=== PATIENT | female | born 1950 | race Caucasian/White ===

== ENCOUNTER → 2021-10-03 11:25 | Outpatient (BNVA) | payer MEDICARE, OTHER, SELFPAY | PROVIDERS: PCP Internal Medicine; Visit Provider Psychiatry & Neurology Neurology | DX: G20 Parkinson's disease (principal); R29.898 Other symptoms and signs involving the musculoskeletal system; M54.2 Cervicalgia | CPT/HCPCS: 99212 ==

== ENCOUNTER → 2021-11-13 09:50 | Outpatient (BNVA) | payer MEDICARE, OTHER, SELFPAY | PROVIDERS: PCP Internal Medicine; Visit Provider Nurse Practitioner Family | DX: G20 Parkinson's disease (principal); G24.3 Spasmodic torticollis; Z79.899 Other long term (current) drug therapy | CPT/HCPCS: 99212 ==

== ENCOUNTER → 2022-01-08 13:26 | Outpatient (BNVA) | payer MEDICARE, OTHER, SELFPAY | PROVIDERS: PCP Internal Medicine; Visit Provider Psychiatry & Neurology Neurology | DX: G24.3 Spasmodic torticollis (principal) | CPT/HCPCS: 64616; 99211; J0585 ==

== ENCOUNTER → 2022-02-24 10:22 | Outpatient (BNVA) | payer MEDICARE, OTHER, SELFPAY | PROVIDERS: PCP Internal Medicine; Visit Provider Psychiatry & Neurology Neurology | DX: G20 Parkinson's disease (principal); G24.3 Spasmodic torticollis; Z79.899 Other long term (current) drug therapy | CPT/HCPCS: 99212 ==

== ENCOUNTER → 2022-04-18 13:11 | Outpatient (BNVA) | payer MEDICARE, OTHER, SELFPAY | PROVIDERS: PCP Internal Medicine; Visit Provider Psychiatry & Neurology Neurology | DX: G24.3 Spasmodic torticollis (principal) | CPT/HCPCS: 64616; 99211; J0585 ==

== ENCOUNTER → 2022-08-07 11:19 | Outpatient (BNVA) | payer MEDICARE, OTHER, SELFPAY | PROVIDERS: PCP Internal Medicine; Visit Provider Psychiatry & Neurology Neurology | DX: G24.3 Spasmodic torticollis (principal) | CPT/HCPCS: 64616; 99211; J0585 ==

== ENCOUNTER → 2022-09-26 09:40 | Outpatient (BNVA) | payer MEDICARE, OTHER, SELFPAY | PROVIDERS: PCP Internal Medicine; Visit Provider Psychiatry & Neurology Neurology | DX: G20 Parkinson's disease (principal); G24.3 Spasmodic torticollis | CPT/HCPCS: 99212 ==

== ENCOUNTER → 2022-11-26 07:53 | Outpatient (BNVA) | payer MEDICARE, OTHER, SELFPAY | PROVIDERS: PCP Internal Medicine; Visit Provider Psychiatry & Neurology Neurology | DX: G24.3 Spasmodic torticollis (principal) | CPT/HCPCS: 64616; 99211; J0585 ==

== ENCOUNTER → 2023-03-05 08:45 | Outpatient (BNVA) | payer MEDICARE, OTHER, SELFPAY | PROVIDERS: PCP Internal Medicine; Visit Provider Psychiatry & Neurology Neurology | DX: G24.3 Spasmodic torticollis (principal); R42 Dizziness and giddiness | CPT/HCPCS: 64616; 99212; J0585 ==

== ENCOUNTER 2023-03-30 12:31 | Outpatient (AMB) | payer MEDICARE, OTHER, SELFPAY ==
--- NOTE | 2023-03-30 12:38 | MHC.OFFVIS ---
Intake Vital Signs 03/30/23 12:40 Height 5 ft 1 in Weight 142 lb 4 oz BMI 26.9 BP 110/84 Blood Pressure Location Rt brachial Position Sitting Pulse 100 Pulse Source Pulse Oximeter Pulse Oximetry (%) 99 Intake Visit Reasons: f/u parkinsons-confirmed Intake Note: Patient presents for follow up Im experiencing some headaches and sometime feel heavy headed. my ears are constantly humming and Im also having some memory issues. Allergies No Known Allergies Allergy (Verified 03/30/23 12:41) Medication List - Last Reconciled 03/30/23 by Vidya Lo MD baclofen 1 tab qama nd 2tabs qhs orally; carbidopa-levodopa 25-100 mg 1 tab PO TID dicyclomine 10 mg PO BID PRN lorazepam 1 mg PO DAILY PRN magnesium 250 mg PO DAILY meclizine 12.5 mg PO TID PRN multivitamin (One-A-Day Essential tablet) 1 tab PO DAILY onabotulinumtoxinA (Botox) 200 units to be injected to neck muscles by physician q 3mths; ondansetron 8 mg PO Q6H PRN pantoprazole 40 mg PO DAILY polyethylene glycol 3350 (Miralax) 17 grams PO DAILY HPI HPI Comments History of Present Illness Details 72y/o female with parkinsons and cervical dystonia comes for follow up. she reports word finding issues .SHe still has neck pain and head is heavy.supine position does not help. Her posture is worse - stooped and has pain in shoulde. Her jaw tremors are less. Her right hand tremors are mild increases with stress. Her MRI c spine - shows spondylosis. Memory is good - occasional word finding issues. Sleep- is ok. No RBD Mood is stable she does not exercise. No falls. Gait is good She is independent in all her ADLs, She reports difficulty handwriting. she had MRI head for headaches. she did not respond to botox this time. she reports fatigue. [facility] Medical History (Updated 03/05/23 @ 09:48 by Vidya Lo MD) Cancer GERD (gastroesophageal reflux disease) Vertigo Surgical History History of lumpectomy of left breast History of surgery Hx of lithotripsy Family History Mother Cancer Father Hx of Guillain-[place] syndrome Daughter Muscular dystrophy Son Depression Social History Household Members: Children Alcohol intake: never Patient Tobacco Use Status: Never used Tobacco Physical Exam Vital Signs: Last Vital Signs Pulse 100 03/30/23 12:40 BP 110/84 03/30/23 12:40 Pulse Ox 99 03/30/23 12:40 BMI result Body Mass Index 26.9 Const General: cooperative, healthy appearing and no acute distress Nutritional Appearance: average body habitus Orientation/consciousness: patient oriented x3 Neck Other: Mild head tremor. Bilateral trapezius, semispinalis tightness. Neuro Other: Mild decreased facial expression and blink. Minimal hands tremor L>R- intermittent Mild decreased FFM and foot taps bilaterally. Gait-stooped, good stride, mild decreased arm swings. General: patient oriented x3 and CN's II-XI intact bilaterally Psych Appearance: grossly normal Mental Status: mental status grossly normal Speech and movement: Normal speech and movement present Assessment & Plan Assessment & Plan (1) Cervical dystonia: Code(s): G24.3 - Spasmodic torticollis (2) Parkinsons disease: Code(s): G20 - Parkinson's disease Plan Continue to take Sinemet 25/100 mg TID, and baclofen 5 mg, 1 tab AM and 2 tabs at HS. continue exercises Orders: Orders PT Evaluation and Treatment 03/30/23 G24.3 - Spasmodic torticollis, M54.2 - Cervicalgia Coding Level of Care Code Est Pt Level 4 (98871) Diagnoses Cervical dystonia G24.3 Parkinsons disease G20
[2023-03-30 12:40] VITALS: BP 110/84; PULSE 100; O2SAT 99; BMI 26.9
== END 2023-03-30 13:01 | disposition home or self-care (01) ==
PROVIDERS: Visit Provider Psychiatry & Neurology Neurology
DX: G24.3 Spasmodic torticollis (principal); G20 Parkinson's disease
CPT/HCPCS: 99214

== ENCOUNTER → 2023-03-30 12:31 | Outpatient (BNVA) | payer MEDICARE, OTHER, SELFPAY | PROVIDERS: Visit Provider Psychiatry & Neurology Neurology | DX: G20 Parkinson's disease (principal); G24.3 Spasmodic torticollis | CPT/HCPCS: 99212 ==

== ENCOUNTER 2023-06-29 12:27 | Outpatient (AMB) | payer MEDICARE, OTHER, SELFPAY ==
--- NOTE | 2023-06-29 12:39 | MHC.OFFVIS ---
Intake Vital Signs 06/29/23 12:41 Height 5 ft 1 in Weight 138 lb 6 oz BMI 26.1 BP 132/78 Blood Pressure Location Rt brachial Position Sitting Respiration 16 Pulse 85 Pulse Source Pulse Oximeter Pulse Oximetry (%) 97 Oxygen Delivery Method Room Air Intake Visit Reasons: follow up-confirmed Intake Note: Pt presents to office for 3 month follow up for cervical dystonia. She reports she has been doing PT which has helped with her neck pain, but she is still getting headaches twice a week. Allergies No Known Allergies Allergy (Verified 06/29/23 12:40) Medication List - Last Reconciled 06/29/23 by Vidya Lo MD baclofen 2 tab qama nd 3 tabs qhs orally; carbidopa-levodopa 25-100 mg 1 tab PO TID dicyclomine 10 mg PO BID PRN lorazepam 1 mg PO DAILY PRN magnesium 250 mg PO DAILY meclizine 12.5 mg PO TID PRN multivitamin (One-A-Day Essential tablet) 1 tab PO DAILY onabotulinumtoxinA (Botox) 200 units to be injected to neck muscles by physician q 3mths; ondansetron 8 mg PO Q6H PRN pantoprazole 40 mg PO DAILY polyethylene glycol 3350 (Miralax) 17 grams PO DAILY HPI HPI Comments History of Present Illness Details 73y/o female with parkinsons and cervical dystonia comes for follow up.PT helped with neck but she had to stop because of GI issues Head is heavy .she has 1-2 headaches a week. she has daytime fatigue. she has trouble staying asleep. she reports word finding issues .supine position does not help. Her posture is worse - stooped and has pain in shoulder. Her jaw tremors are less. Her right hand tremors are mild increases with stress. Her MRI c spine - shows spondylosis. Memory is good - occasional word finding issues. Sleep- is ok. No RBD Mood is stable she does not exercise. No falls. Gait is good She is independent in all her ADLs, She reports difficulty handwriting. she had MRI head for headaches. she did not respond to botox this time. she reports fatigue. [facility] Medical History Vertigo Cancer GERD (gastroesophageal reflux disease) Surgical History History of surgery Hx of lithotripsy History of lumpectomy of left breast Family History Mother Cancer Father Hx of Guillain-[place] syndrome Daughter Muscular dystrophy Son Depression Social History Household Members: Children Alcohol intake: never Patient Tobacco Use Status: Never used Tobacco Physical Exam Vital Signs: Last Vital Signs Pulse 85 06/29/23 12:41 Resp 16 06/29/23 12:41 BP 132/78 06/29/23 12:41 Pulse Ox 97 06/29/23 12:41 Oxygen Delivery Method Room Air 06/29/23 12:41 BMI result Body Mass Index 26.1 Const General: cooperative, healthy appearing and no acute distress Nutritional Appearance: average body habitus Orientation/consciousness: patient oriented x3 Neck Other: Mild head tremor. Bilateral trapezius, semispinalis tightness. Neuro Other: Mild decreased facial expression and blink. Minimal hands tremor L>R- intermittent Mild decreased FFM and foot taps bilaterally. Gait-stooped, good stride, mild decreased arm swings. General: patient oriented x3 and CN's II-XI intact bilaterally Psych Appearance: grossly normal Mental Status: mental status grossly normal Speech and movement: Normal speech and movement present Assessment & Plan Assessment & Plan (1) Cervical dystonia: Code(s): G24.3 - Spasmodic torticollis (2) Parkinsons disease: Code(s): G20 - Parkinson's disease Plan Continue to take Sinemet 25/100 mg TID, and Increase baclofen 5 mg, 2 tab AM and 3 tabs at HS. continue exercises Orders: Referrals Speech and Hearing Referral G20 - Parkinson's disease Medications: Changed From baclofen 1 tab qama nd 2tabs qhs orally; 270 tabs 1RF To baclofen 2 tab qama nd 3 tabs qhs orally; 450 tabs 1RF Coding Level of Care Code Est Pt Level 4 (54633) Diagnoses Cervical dystonia G24.3 Parkinsons disease G20
[2023-06-29 12:41] VITALS: BP 132/78; PULSE 85; RESP 16; O2SAT 97; BMI 26.1
== END 2023-06-29 13:11 | disposition home or self-care (01) ==
PROVIDERS: PCP Internal Medicine; Visit Provider Psychiatry & Neurology Neurology
DX: G24.3 Spasmodic torticollis (principal); G20.B1 Parkinson's disease with dyskinesia, without mention of fluctuations
CPT/HCPCS: 99214

== ENCOUNTER → 2023-06-29 12:27 | Outpatient (BNVA) | payer MEDICARE, OTHER, SELFPAY | PROVIDERS: PCP Internal Medicine; Visit Provider Psychiatry & Neurology Neurology | DX: G24.3 Spasmodic torticollis (principal); G20.A1 Parkinson's disease without dyskinesia, without mention of fluctuations | CPT/HCPCS: 99212 ==

== ENCOUNTER 2023-09-29 10:45 | Outpatient (AMB) | payer MEDICARE, OTHER, SELFPAY ==
--- NOTE | 2023-09-29 11:02 | MHC.OFFVIS ---
Intake Vital Signs 09/29/23 11:04 Height 5 ft 1 in Weight 136 lb 9 oz BMI 25.8 BP 138/80 Blood Pressure Location Lt brachial Position Sitting Respiration 16 Pulse 122 H Pulse Source Pulse Oximeter Pulse Oximetry (%) 99 Oxygen Delivery Method Room Air Intake Visit Reasons: 3 mnts f/u appt-Confirmed Intake Note: Pt presents to the office for a 3 month follow up for Parkinson's and cervical dystonia.Pt reports increased tremors on the right side for the last 2 weeks. [employer] Safety Engineer Required: No Allergies No Known Allergies Allergy (Verified 09/29/23 11:03) Medication List - Last Reconciled 09/29/23 by Vidya Lo MD baclofen 2 tab qama nd 3 tabs qhs orally; carbidopa-levodopa 25-100 mg 1 tab PO TID dicyclomine 10 mg PO BID PRN lorazepam 1 mg PO DAILY PRN magnesium 250 mg PO DAILY multivitamin (One-A-Day Essential tablet) 1 tab PO DAILY pantoprazole 40 mg PO DAILY polyethylene glycol 3350 (Miralax) 17 grams PO DAILY HPI HPI Comments History of Present Illness Details 73y/o female with parkinsons and cervical dystonia comes for follow up.she feels she is worse. her tremors in her lips and right hand and neck has worsened . she tried lorazepam and it helped. During she had COVID and has been tried since then she is also more anxious and has hard time falling asleep after waking up to use the bathroom. She was seen at ENT for headaches and ears being blocked , was given a course of steroid and antibiotics which did not help. she has daytime fatigue. she has trouble staying asleep. she reports word finding issues .supine position does not help. Her posture is worse - stooped and has pain in shoulder. Her MRI c spine - shows spondylosis. Memory is good - occasional word finding issues. Sleep- is ok. No RBD Mood is stable she does not exercise. No falls. Gait is good She is independent in all her ADLs, She reports difficulty handwriting. she had MRI head for headaches. she did not respond to botox this time. she reports fatigue. [facility] Medical History Vertigo Cancer GERD (gastroesophageal reflux disease) Surgical History History of surgery Hx of lithotripsy History of lumpectomy of left breast Family History Mother Cancer Father Hx of Guillain-[place] syndrome Daughter Muscular dystrophy Son Depression Social History Household Members: Children Alcohol intake: never Patient Tobacco Use Status: Never used Tobacco Physical Exam Vital Signs: Last Vital Signs Pulse 122 H 09/29/23 11:04 Resp 16 09/29/23 11:04 BP 138/80 09/29/23 11:04 Pulse Ox 99 09/29/23 11:04 Oxygen Delivery Method Room Air 09/29/23 11:04 BMI result Body Mass Index 25.8 Const General: cooperative, healthy appearing and no acute distress Nutritional Appearance: average body habitus Orientation/consciousness: patient oriented x3 Neck Other: Mild head tremor. Bilateral trapezius, semispinalis tightness. Neuro Other: Mild decreased facial expression and blink. Minimal hands tremor L>R- intermittent Mild decreased FFM and foot taps bilaterally. Gait-stooped, good stride, mild decreased arm swings. General: patient oriented x3 and CN's II-XI intact bilaterally Psych Appearance: grossly normal Mental Status: mental status grossly normal Speech and movement: Normal speech and movement present Assessment & Plan Assessment & Plan (1) Cervical dystonia: Code(s): G24.3 - Spasmodic torticollis (2) Parkinsons disease: Code(s): G20 - Parkinson's disease Plan Continue to take Sinemet 25/100 mg TID, and baclofen 5 mg, 2 tab AM and 3 tabs at HS. continue exercises Coding Level of Care Code Est Pt Level 4 (88401) Diagnoses Cervical dystonia G24.3 Parkinsons disease G20
[2023-09-29 11:04] VITALS: BP 138/80; PULSE 122; RESP 16; O2SAT 99; BMI 25.8
== END 2023-09-29 11:26 | disposition home or self-care (01) ==
PROVIDERS: PCP Internal Medicine; Visit Provider Psychiatry & Neurology Neurology
DX: G24.3 Spasmodic torticollis (principal); G20.B1 Parkinson's disease with dyskinesia, without mention of fluctuations
CPT/HCPCS: 99214

== ENCOUNTER → 2023-09-29 10:45 | Outpatient (BNVA) | payer MEDICARE, OTHER, SELFPAY | PROVIDERS: PCP Internal Medicine; Visit Provider Psychiatry & Neurology Neurology | DX: G24.3 Spasmodic torticollis (principal); G20.A1 Parkinson's disease without dyskinesia, without mention of fluctuations; Z79.899 Other long term (current) drug therapy | CPT/HCPCS: 99212 ==

== ENCOUNTER 2024-01-07 14:19 | Outpatient (AMB) | payer MEDICARE, OTHER, SELFPAY ==
[2024-01-07 14:25] VITALS: BP 122/70; PULSE 97; RESP 16; O2SAT 99; BMI 26.4
--- NOTE | 2024-01-07 14:25 | MHC.OFFVIS ---
Vital Signs 01/07/24 14:25 Height 5 ft 1 in Weight 139 lb 8 oz BMI 26.4 BP 122/70 Blood Pressure Location Rt brachial Position Sitting Respiration 16 Pulse 97 Pulse Source Pulse Oximeter Pulse Oximetry (%) 99 Oxygen Delivery Method Room Air Intake Visit Reasons: 3 mo f/CONF Intake Note: Pt presents for 3 month follow up for cervical dystonia. Mapping Editor Required: No Allergies No Known Allergies Allergy (Verified 01/07/24 14:25) Medication List - Last Reconciled 01/07/24 by Vidya Lo MD baclofen 5 mg orally 1 tab qam and 2 tabs qhs; carbidopa-levodopa 25-100 mg 1 tab PO TID dicyclomine 10 mg PO BID PRN famotidine 40 mg PO DAILY lorazepam 1 mg PO DAILY PRN magnesium 250 mg PO DAILY multivitamin (One-A-Day Essential tablet) 1 tab PO DAILY polyethylene glycol 3350 (Miralax) 17 grams PO DAILY HPI Comments Details: 73y/o female with parkinsons and cervical dystonia comes for follow up.Her parkinsons is stable No change since her last visit. Her anxiety is better with lorazepam .Tremors are more when she is tired and anxious- mostly in her lips headaches are less frequent. she reports word finding issues . Her MRI c spine - shows spondylosis. Memory is good - occasional word finding issues. Sleep- is ok. 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 No falls. Gait is good She is independent in all her ADLs, She reports difficulty handwriting.. she reports fatigue. [facility] Medical History (Updated 01/07/24 @ 14:40 by Vidya Lo MD) Parkinson's disease without dyskinesia Vertigo Cancer GERD (gastroesophageal reflux disease) Surgical History History of surgery Hx of lithotripsy History of lumpectomy of left breast Family History Mother Cancer Father Hx of Guillain-[place] syndrome Daughter Muscular dystrophy Son Depression Social History Household Members: Children Alcohol intake: never Patient Tobacco Use Status: Never used Tobacco Physical Exam Vital Signs: Last Vital Signs Pulse 97 01/07/24 14:25 Resp 16 01/07/24 14:25 BP 122/70 01/07/24 14:25 Pulse Ox 99 01/07/24 14:25 Oxygen Delivery Method Room Air 01/07/24 14:25 BMI result Body Mass Index 26.4 Const General: cooperative, healthy appearing and no acute distress Nutritional Appearance: average body habitus Orientation/consciousness: patient oriented x3 Neck Other: Mild head tremor. Bilateral trapezius, semispinalis tightness. Neuro Other: Mild decreased facial expression and blink. Minimal hands tremor L>R- intermittent Mild decreased FFM and foot taps bilaterally. Gait-stooped, good stride, mild decreased arm swings. General: patient oriented x3 and CN's II-XI intact bilaterally Psych Appearance: grossly normal Mental Status: mental status grossly normal Speech and movement: Normal speech and movement present Assessment & Plan Assessment & Plan (1) Parkinson's disease without dyskinesia: Code(s): G20.A1 - Parkinson's disease without dyskinesia, without mention of fluctuations Category: Medical (2) Cervical dystonia: Code(s): G24.3 - Spasmodic torticollis Category: Medical Plan Continue to take Sinemet 25/100 mg TID, and decrease baclofen 5 mg, 3 tabs at HS. continue exercises change lorazepam 0.5mg as needed Medications: Changed From lorazepam 1 mg PO DAILY PRN To lorazepam 0.5 mg PO BID PRN 60 tabs 0RF anxiety Coding Level of Care Code Est Pt Level 4 (43172) Complex EM visit Add On G2211 Diagnoses Parkinson's disease without dyskinesia G20.A1 Cervical dystonia G24.3
== END 2024-01-07 14:52 | disposition home or self-care (01) ==
PROVIDERS: PCP Internal Medicine; Visit Provider Psychiatry & Neurology Neurology
DX: G20.A1 Parkinson's disease without dyskinesia, without mention of fluctuations (principal); G24.3 Spasmodic torticollis
CPT/HCPCS: 99214; G2211

== ENCOUNTER → 2024-01-07 14:19 | Outpatient (BNVA) | payer MEDICARE, OTHER, SELFPAY | PROVIDERS: PCP Internal Medicine; Visit Provider Psychiatry & Neurology Neurology | DX: G20.A1 Parkinson's disease without dyskinesia, without mention of fluctuations (principal); G24.3 Spasmodic torticollis | CPT/HCPCS: 99212 ==

== ENCOUNTER 2024-03-14 08:45 | Outpatient (AMB) | payer MEDICARE, OTHER, SELFPAY ==
[2024-03-14 09:10] VITALS: BP 126/70; PULSE 104; RESP 16; O2SAT 78; BMI 25.5
--- NOTE | 2024-03-14 09:10 | A.OFFVIS_ITS ---
Vital Signs 03/14/24 09:10 Height 5 ft 1 in Weight 135 lb BMI 25.5 BP 126/70 Blood Pressure Location Rt brachial Position Sitting Respiration 16 Pulse 104 H Pulse Source Pulse Oximeter Pulse Oximetry (%) 78 L Oxygen Delivery Method Room Air Intake Visit Reasons: F/u for leg weakness and heavy feet-CONF Intake Note: Pt presents to the office for a 2 month follow up for cervical dystonia. Pt reports increased weakness of legs and feet. She c/o heaviness. Rope Cutter Required: No Allergies No Known Allergies Allergy (Verified 03/14/24 09:10) Medication List - Last Reconciled 03/14/24 by Vidya Lo MD baclofen 5 mg orally 1 tab qam and 2 tabs qhs; carbidopa-levodopa 25-100 mg 1 tab PO TID dicyclomine 10 mg PO BID PRN famotidine 40 mg PO DAILY lorazepam 0.5 mg PO BID PRN magnesium 250 mg PO DAILY mirtazapine 7.5 mg PO BEDTIME multivitamin (One-A-Day Essential tablet) 1 tab PO DAILY polyethylene glycol 3350 (Miralax) 17 grams PO DAILY HPI Comments Details: 73y/o female with parkinsons and cervical dystonia comes for follow up.Her parkinsons has progressed. Right hand is more tremulous and has less dextirity. Legs feel very weak. No falls , no trouble walking. Her anxiety is worse. she was referred for psychotherapy. headaches are less frequent. she reports word finding issues . Her MRI c spine - shows spondylosis. Memory is good - occasional word finding issues. Sleep- feels tired and has trouble falling asleep Mood is worse she is doing chair yoga at a local [employer]. She is independent in all her ADLs, She reports difficulty handwriting.. she reports fatigue. [facility] Medical History (Updated 01/07/24 @ 14:40 by Vidya Lo MD) Parkinson's disease without dyskinesia Vertigo Cancer GERD (gastroesophageal reflux disease) Surgical History History of surgery Hx of lithotripsy History of lumpectomy of left breast Family History Mother Cancer Father Hx of Guillain-[place] syndrome Daughter Muscular dystrophy Son Depression Social History Household Members: Children Alcohol intake: never Patient Tobacco Use Status: Never used Tobacco Physical Exam Vital Signs: Last Vital Signs Pulse 104 H 03/14/24 09:10 Resp 16 03/14/24 09:10 BP 126/70 03/14/24 09:10 Pulse Ox 78 L 03/14/24 09:10 Oxygen Delivery Method Room Air 03/14/24 09:10 BMI result Body Mass Index 25.5 Const General: cooperative, healthy appearing and no acute distress Nutritional Appearance: average body habitus Orientation/consciousness: patient oriented x3 Neck Other: Mild head tremor. Bilateral trapezius, semispinalis tightness. Neuro Other: Mild decreased facial expression and blink. Minimal hands tremor L>R- intermittent Mild decreased FFM and foot taps bilaterally. Gait-stooped, good stride, mild decreased arm swings. General: patient oriented x3 and CN's II-XI intact bilaterally Psych Appearance: grossly normal Mental Status: mental status grossly normal Speech and movement: Normal speech and movement present Assessment & Plan Assessment & Plan (1) Parkinson's disease without dyskinesia: Code(s): G20.A1 - Parkinson's disease without dyskinesia, without mention of fluctuations Category: Medical (2) Cervical dystonia: Code(s): G24.3 - Spasmodic torticollis Category: Medical Plan Continue to take Sinemet 25/100 mg TID, and decrease baclofen 5 mg, 3 tabs at HS. continue exercises change lorazepam 0.5mg as needed will trial her on mirtazepine 7.5 mg qhs for anxiety and sleep Medications: New mirtazapine 7.5 mg PO BEDTIME 30 tabs 6RF Coding Level of Care Code Est Pt Level 4 (22848) Complex EM visit Add On G2211 Diagnoses Parkinson's disease without dyskinesia G20.A1 Cervical dystonia G24.3
== END 2024-03-14 09:49 | disposition home or self-care (01) ==
PROVIDERS: PCP Internal Medicine; Visit Provider Psychiatry & Neurology Neurology
DX: G20.A1 Parkinson's disease without dyskinesia, without mention of fluctuations (principal); G24.3 Spasmodic torticollis
CPT/HCPCS: 99214; G2211

== ENCOUNTER → 2024-03-14 08:45 | Outpatient (BNVA) | payer MEDICARE, OTHER, SELFPAY | PROVIDERS: PCP Internal Medicine; Visit Provider Psychiatry & Neurology Neurology | DX: G24.3 Spasmodic torticollis (principal); G20.A1 Parkinson's disease without dyskinesia, without mention of fluctuations; Z79.899 Other long term (current) drug therapy | CPT/HCPCS: 99212 ==

== ENCOUNTER 2024-09-15 12:29 | Outpatient (AMB) | payer MEDICARE, OTHER, SELFPAY ==
[2024-09-15 12:34] VITALS: BP 138/74; BMI 26.6
--- NOTE | 2024-09-15 12:34 | MHC.OFFVIS ---
Vital Signs 09/15/24 12:34 Height 5 ft 1 in Weight 141 lb BMI 26.6 BP 138/74 Blood Pressure Location Rt brachial Position Sitting Intake Visit Reasons: Follow up Intake Note: Patient presents for follow up. patient experiencing weakness for s couple weeks now. Allergies No Known Allergies Allergy (Verified 09/15/24 12:37) HPI Comments Details: 74y/o female with parkinsons and cervical dystonia comes for follow up.Her parkinsons has progressed.she feels her legs are weaker and her feet feels heavy No falls , no trouble walking. Her anxiety is better with therapy and meds headaches have resolved. Her MRI c spine - shows spondylosis. Memory is good - occasional word finding issues. she is doing chair yoga at a local [employer]. She is independent in all her ADLs, She reports difficulty handwriting.. she reports fatigue.she was seen by [facility] - no evidence of sleep apnea. [facility] Medical History Parkinson's disease without dyskinesia Vertigo Cancer GERD (gastroesophageal reflux disease) Surgical History History of surgery Hx of lithotripsy History of lumpectomy of left breast Family History Mother Cancer Father Hx of Guillain-[place] syndrome Daughter Muscular dystrophy Son Depression Social History Household Members: Children Alcohol intake: never Patient Tobacco Use Status: Never used Tobacco Physical Exam Vital Signs: Last Vital Signs BP 138/74 09/15/24 12:34 BMI result Body Mass Index 26.6 Const General: cooperative, healthy appearing and no acute distress Nutritional Appearance: average body habitus Orientation/consciousness: patient oriented x3 Neck Other: Mild head tremor. Bilateral trapezius, semispinalis tightness. Neuro Other: Mild decreased facial expression and blink. Minimal hands tremor L>R- intermittent Mild decreased FFM and foot taps bilaterally. Gait-stooped, good stride, mild decreased arm swings. General: patient oriented x3 and CN's II-XI intact bilaterally Psych Appearance: grossly normal Mental Status: mental status grossly normal Speech and movement: Normal speech and movement present Assessment & Plan Assessment & Plan (1) Parkinson's disease without dyskinesia: Code(s): G20.A1 - Parkinson's disease without dyskinesia, without mention of fluctuations Category: Medical Qualifiers: Fluctuating manifestations: without fluctuating manifestations Qualified Code(s): G20.A1 - Parkinson's disease without dyskinesia, without mention of fluctuations (2) Cervical dystonia: Code(s): G24.3 - Spasmodic torticollis Category: Medical Plan Continue to take Sinemet 25/100 mg TID, and decrease baclofen 5 mg, 3 tabs at HS. continue exercises PT for gait and balance issues lorazepam 0.5mg as needed mirtazepine 7.5 mg qhs for anxiety and sleep Orders: Orders PT Evaluation and Treatment Today G20.A1 - Parkinson's disease without dyskinesia, without mention of fluctuations Medications: Refilled baclofen 2 tabs qam and 3 tabs qhs orally .; 30 days 150 tabs 1RF muscle spasm mirtazapine 7.5 mg PO BEDTIME 30 tabs 6RF Coding Level of Care Code Est Pt Level 4 (97832) Complex EM visit Add On G2211 Diagnoses Parkinson's disease without dyskinesia or fluctuating manifestations G20.A1 Fluctuating manifestations: without fluctuating manifestations Cervical dystonia G24.3
== END 2024-09-15 12:58 | disposition home or self-care (01) ==
PROVIDERS: PCP Internal Medicine; Visit Provider Psychiatry & Neurology Neurology
DX: G20.A1 Parkinson's disease without dyskinesia, without mention of fluctuations (principal); G24.3 Spasmodic torticollis
CPT/HCPCS: 99214; G2211

== ENCOUNTER → 2024-09-15 12:29 | Outpatient (BNVA) | payer MEDICARE, OTHER, SELFPAY | PROVIDERS: PCP Internal Medicine; Visit Provider Psychiatry & Neurology Neurology | DX: G20.A1 Parkinson's disease without dyskinesia, without mention of fluctuations (principal); G24.3 Spasmodic torticollis | CPT/HCPCS: 99212 ==

== ENCOUNTER 2024-12-21 14:56 | Outpatient (AMB) | payer MEDICARE, OTHER, SELFPAY ==
[2024-12-21 14:55] VITALS: BP 122/84; PULSE 110; O2SAT 98; BMI 26.9
--- NOTE | 2024-12-21 14:55 | MHC.OFFVIS ---
Vital Signs 12/21/24 14:55 Height 5 ft 1 in Weight 142 lb 6 oz BMI 26.9 BP 122/84 Blood Pressure Location Lt brachial Position Sitting Pulse 110 H Pulse Source Pulse Oximeter Pulse Oximetry (%) 98 Oxygen Delivery Method Room Air Intake Visit Reasons: Follow up Tremors-LVM Intake Note: Patient asked to be added to schedule, tremors are getting worst and wanted to see provider. Accompanied by: Daughter Allergies No Known Allergies Allergy (Verified 12/21/24 14:59) Medication List - Last Reconciled 12/21/24 by Vidya Lo MD baclofen 1 tab qam and 1 1/2 tab qhs 30 days carbidopa-levodopa 25-100 mg 1 tab PO TID dicyclomine 10 mg PO BID PRN famotidine 40 mg PO DAILY folic acid 1 mg PO DAILY lorazepam 0.5 mg PO BID PRN magnesium 250 mg PO DAILY mirtazapine 7.5 mg PO BEDTIME multivitamin (One-A-Day Essential tablet) 1 tab PO DAILY HPI Comments Details: 74y/o female with parkinsons and cervical dystonia comes for follow up. PT helped with balance - and leg strength.she started going to [facility] PD group. Her parkinsons has progressed.she feels her legs are weaker and her feet feels heavy No falls , no trouble walking. Her anxiety is better with therapy and meds headaches have resolved. Her MRI c spine - shows spondylosis. Memory is good - occasional word finding issues but doing good she is doing chair yoga at a local library. She is independent in all her ADLs, She reports difficulty handwriting.. she reports fatigue.she was [facility] - no evidence of sleep apnea. [facility] Medical History Parkinson's disease without dyskinesia Vertigo Cancer GERD (gastroesophageal reflux disease) Surgical History History of surgery Hx of lithotripsy History of lumpectomy of left breast Family History Mother Cancer Father Hx of Guillain-[place] syndrome Daughter Muscular dystrophy Son Depression Social History Household Members: Children Alcohol intake: never Patient Tobacco Use Status: Never used Tobacco Physical Exam Vital Signs: Last Vital Signs Pulse 110 H 12/21/24 14:55 BP 122/84 12/21/24 14:55 Pulse Ox 98 12/21/24 14:55 Oxygen Delivery Method Room Air 12/21/24 14:55 BMI result Body Mass Index 26.9 Const General: cooperative, healthy appearing and no acute distress Nutritional Appearance: average body habitus Orientation/consciousness: patient oriented x3 Neck Other: Mild head tremor. Bilateral trapezius, semispinalis tightness. Neuro Other: Mild decreased facial expression and blink. Minimal hands tremor L>R- intermittent Mild decreased FFM and foot taps bilaterally. Gait-stooped, good stride, mild decreased arm swings. General: patient oriented x3 and CN's II-XI intact bilaterally Psych Appearance: grossly normal Mental Status: mental status grossly normal Speech and movement: Normal speech and movement present Assessment & Plan Assessment & Plan (1) Parkinson's disease without dyskinesia: Code(s): G20.A1 - Parkinson's disease without dyskinesia, without mention of fluctuations Category: Medical Qualifiers: Fluctuating manifestations: without fluctuating manifestations Qualified Code(s): G20.A1 - Parkinson's disease without dyskinesia, without mention of fluctuations (2) Cervical dystonia: Code(s): G24.3 - Spasmodic torticollis Category: Medical Plan Continue to take Sinemet 25/100 mg TID, and decrease baclofen 5 mg, 3 tabs at HS. continue exercises lorazepam 0.5mg as needed mirtazepine 7.5 mg qhs for anxiety and sleep Coding Level of Care Code Est Pt Level 4 (17411) Complex EM visit Add On G2211 Diagnoses Parkinson's disease without dyskinesia or fluctuating manifestations G20.A1 Fluctuating manifestations: without fluctuating manifestations Cervical dystonia G24.3
--- OUTSIDE RECORDS SUMMARY | 2024-12-21 17:41 | XMS_ITS | Clinical Summary ---
Author Organization [address] Address [address] [place] [phone] Phone Care Team Providers Care Labor Specialist Name Role Phone Unavailable Primary Care Provider Unavailabl e Allergies No known active allergies Medications famotidine (PEPCID) 40 mg tabletIndication s:Gastroesophage al reflux disease without esophagitis TAKE 1 TABLET BY MOUTH TWICE A DAY 180 tablet 11/02/2024 Active dicyclomine (BENTYL) 10 mg capsuleIndicatio ns:Irritable bowel syndrome, unspecified type Take 1 capsule (10 mg total) by mouth 1 (one) time each day. 90 each 3 12/20/2024 12/21/19 26 Active Encounters Date Type Department Care Team Description 12/20/2024 8:30 AM EDT Office Visit Gastroenterology - [address] [place] [phone] Nara Hernández, ZACHERY Irritable bowel syndrome, unspecified type (Primary Dx); Anal itching from Last 3 Months Social History Tobacco Use Types Packs/Day Years Used Date Smoking Tobacco: Never Assessed Comments Unknown Sex and Gender Information Value Date Recorded Sex Assigned at Not on file Legal Sex Female 12:43 PM EST Gender Identity Not on file Sexual Orientation Not on file Last Filed Vital Signs Vital Sign Reading Time Taken Comments Blood Pressure - - Pulse - - Temperature - - Respiratory Rate - - Oxygen Saturation - - Inhaled Oxygen Concentration - - Weight 64.1 kg (141 lb 6.4 oz) 12/20/2024 8:20 A M EDT Height 154.9 cm (5' 1 ) 12/20/2024 8:20 AM EDT Body Mass Index 26.72 12/20/2024 8:20 AM EDT Plan of Treatment Health Maintenance Due Date Last Done Comments Breast Cancer Screening 1950 Zoster Vaccines (1 of 2) 06/02/2013 04/07/2013, 10/2009 Colorectal Cancer Screening: Colonoscopy 08/05/2022 Depression Screening 08/05/2022 Falls Risk Assessment 08/05/2022 Hepatitis C Screening 08/05/2022 Medicare Annual Wellness Visit 08/05/2022 Osteoporosis Screening (Bone Density Screening) 08/05/2022 Social Influencers of Health Screening 08/05/2022 COVID-19 Vaccine (8 - Moderna risk season) 2024 05/12/2024, 06/12/2023, 07/23/2022, Additional history exists RSV Immunization Adult Patients (1 - 1-dose 75+ series) 2025 DTaP,Tdap,and Td Vaccines (2 - Td or Tdap) 07/22/2026 07/22/2016 Pneumococcal Vaccine: 50+ Years Completed 07/27/2018, 07/24/2017 Influenza Vaccine Completed 08/09/2024, , 07/11/2022, Additional history exists HIB Vaccines Aged Out No longer eligi ble based on patient's age to complete this topic HPV Vaccines Aged Out No longer eligi ble based on patient's age to complete this topic Hepatitis A Vaccines Aged Out No long er eligible based on patient's age to complete this topic Hepatitis B Vaccines Aged Out No long er eligible based on patient's age to complete this topic IPV Vaccines Aged Out No longer eligi ble based on patient's age to complete this topic MMR Vaccines Aged Out No longer eligi ble based on patient's age to complete this topic Meningococcal ACWY Vaccine Aged Out N o longer eligible based on patient's age to complete this topic Meningococcal B Vaccine Aged Out No l onger eligible based on patient's age to complete this topic RSV Immunization Patients Under 20 months Aged Out No longer eligible based on patient's age to complete this topic Varicella Vaccines Aged Out No longer eligible based on patient's age to complete this topic Insurance MEDICARE [facility]
--- OUTSIDE RECORDS SUMMARY | 2024-12-21 17:41 | XMS_ITS | Encounter Summary ---
Author Organization [facility] Address [address] [place] [address] Care Team Providers Care Direct Chill Casting Operator Name Role Phone Unavailable Primary Care Provider Unavailabl e Reason for Visit * Reason Comments Anal Itching Encounter Details Date Type Department Care Team ([facility] st Contact Info) Description 12/20/2024 8:30 AM EDT Office Visit Gastroenterology - [address] [phone] Nara Hernández, ZACHERY [address] [address] Irritable bowel syndrome, unspecified type (Primary Dx); Anal itching Social History Tobacco Use Types Packs/Day Years Used Date Smoking Tobacco: Never Assessed Comments Unknown Sex and Gender Information Value Date Recorded Sex Assigned at Not on file Legal Sex Female 12:43 PM EST Gender Identity Not on file Sexual Orientation Not on file documented as of this encounter Last Filed Vital Signs Vital Sign Reading Time Taken Comments Blood Pressure - - Pulse - - Temperature - - Respiratory Rate - - Oxygen Saturation - - Inhaled Oxygen Concentration - - Weight 64.1 kg (141 lb 6.4 oz) 12/20/2024 8:20 A M EDT Height 154.9 cm (5' 1 ) 12/20/2024 8:20 AM EDT Body Mass Index 26.72 12/20/2024 8:20 AM EDT documented in this encounter Ordered Prescriptions Prescription Sig Dispense Quantity Refills Last Filled Start Date End Date dicyclomine (BENTYL) 10 mg capsuleIndications :Irritable bowel syndrome, unspecified type Take 1 capsule (10 mg total) by mouth 1 (one) time each day. 90 each 3 12/20/2024 documented in this encounter Progress Notes * Nara Hernández NP - 12/20/2024 8:30 AM EDT CHIEF COMPLAINT: Anal Itching DATE OF LAST GASTROENTEROLOGY PROCEDURES: 01/2024 Colonoscopy 5 yr recall HPI: Zara Segal is a 74 y.o. old female who was originally referred to us by No primary care provider on file. now presents to the gastroenterology department today complaining of rectal pruritus for months. Bowels are moving well and she does not feel constipated nor is she having diarrhea. Denies rectal bleeding. Denies change in bowels, or new medications. No abdominal or rectal pain. Weight stable ROS: GENERAL: No malaise, significant weight loss or fever HEENT: No changes in hearing or vision or swallowing problems RESPIRATORY: No cough, wheezing or shortness of breath CARDIOVASCULAR: No chest pain, leg swelling or palpitations GI: See H&P The remainder of the review of systems is reviewed and negative. PAST MEDICAL HISTORY: IBS GERD Anxiety Parkinsons Kidney stones Diverticulitis Colon polyps PAST SURGICAL HISTORY: No past surgical history on file. SOCIAL HISTORY: No tpbacco No EtOH FAMILY HISTORY: Sister with polyps No CRC ACTIVE MEDICATIONS: Carbidopa/Levodopa TID Folic Acid 1mg QD Baclofen 10mg AM, 15mg QPM D3 Dicyclomine 10mg QD Mirtazapine7.5mg QD Ativan 0.5 prn ALLERGIES: No Known Allergies PHYSICAL EXAM: Visit Vitals Ht 1.549 m (61 ) Wt 64.1 kg (141 lb 6.4 oz) BMI 26.72 kg/m?? BSA 1.63 m?? APPEARANCE: Alert and in no acute distress EYES: PERRLA, conjunctiva and sclera normal. HEART: RRR with normal S1 and S2, no murmurs appreciated LUNG: clear to auscultation ABDOMEN: nontender no masses RECTAL: WNL mild skin irritation No marilyn NEURO: Awake, alert and oriented x 3 Assessment & Plan Irritable bowel syndrome, unspecified type Orders: dicyclomine (BENTYL) 10 mg capsule; Take 1 capsule (10 mg total) by mouth 1 (one) time each day. Anal itching Avoid soap to the area Pat dry after bathing (no rubbing) Sitz baths/olya bottle Balneol lotion prn Followup prn I would like to thank No primary care provider on file. for the opportunity to partake in the patient's care. Board Certified Gastroenterology [facility] W [phone] [place] [id number] [email or web address] Nara Hernández NP documented in this encounter Plan of Treatment Not on file documented as of this encounter Visit Diagnoses Diagnosis Irritable bowel syndrome, unspecified type- Primary Anal itching Pruritus ani documented in this encounter
== END 2024-12-21 15:39 | disposition home or self-care (01) ==
LOC: HO.HSMS 14:57
PROVIDERS: PCP Internal Medicine; Visit Provider Psychiatry & Neurology Neurology
DX: G20.A1 Parkinson's disease without dyskinesia, without mention of fluctuations (principal); G24.3 Spasmodic torticollis
CPT/HCPCS: 99214; G2211

== ENCOUNTER → 2024-12-21 14:56 | Outpatient (BNVA) | payer MEDICARE, OTHER, SELFPAY | PROVIDERS: PCP Internal Medicine; Visit Provider Psychiatry & Neurology Neurology | DX: G20.A1 Parkinson's disease without dyskinesia, without mention of fluctuations (principal); G24.3 Spasmodic torticollis | CPT/HCPCS: 99212 ==

== ENCOUNTER 2025-03-16 11:06 | Outpatient (AMB) | payer MEDICARE, OTHER, SELFPAY ==
[2025-03-16 11:15] VITALS: BP 100/80; PULSE 80; O2SAT 99; BMI 26.4
--- NOTE | 2025-03-16 11:15 | A.OFFVIS_ITS ---
Vital Signs 03/16/25 11:15 Height 5 ft 1 in Weight 140 lb BMI 26.4 BP 100/80 Blood Pressure Location Lt brachial Position Sitting Pulse 80 Pulse Source Pulse Oximeter Pulse Oximetry (%) 99 Oxygen Delivery Method Room Air Intake Visit Reasons: 6mon follow-up Intake Note: Patient presents for follow up Parkinson's disease without dyskinesia Courseware Developer Required: No Accompanied by: Self / Same As Patient Allergies No Known Allergies Allergy (Verified 03/16/25 11:20) Medication List - Last Reconciled 03/16/25 by Vidya Lo MD baclofen 1 tab qam and 1 1/2 tab qhs 30 days carbidopa-levodopa 25-100 mg 1 tab PO QID celecoxib 200 mg PO DAILY dicyclomine 10 mg PO BID PRN famotidine 40 mg PO DAILY folic acid 1 mg PO DAILY lorazepam 0.5 mg PO BID PRN magnesium 250 mg PO DAILY mirtazapine 7.5 mg PO BEDTIME multivitamin (One-A-Day Essential tablet) 1 tab PO DAILY HPI Comments Details: 74y/o female with parkinsons and cervical dystonia comes for follow up.she reports that her feet and toes are always cold, sometimes tingling . she also reports feeling heavy. Her parkinsons has progressed.she feels her legs are weaker and her feet feels heavy No falls , no trouble walking. Her anxiety is better with therapy and meds headaches have resolved. Her MRI c spine - shows spondylosis. Memory is good - occasional word finding issues but doing good she does 2 parkinsons class per week She is independent in all her ADLs, She reports difficulty handwriting.. she reports fatigue.she was seen by [facility] SLeep - no evidence of sleep apnea. [facility] Medical History Parkinson's disease without dyskinesia Vertigo Cancer GERD (gastroesophageal reflux disease) Surgical History History of surgery Hx of lithotripsy History of lumpectomy of left breast Family History Mother Cancer Father Hx of Guillain-[place] syndrome Daughter Muscular dystrophy Son Depression Social History Household Members: Children Alcohol intake: never Patient Tobacco Use Status: Never used Tobacco Physical Exam Vital Signs: Last Vital Signs Pulse 80 03/16/25 11:15 BP 100/80 03/16/25 11:15 Pulse Ox 99 03/16/25 11:15 Oxygen Delivery Method Room Air 03/16/25 11:15 BMI result Body Mass Index 26.4 Const General: cooperative, healthy appearing and no acute distress Nutritional Appearance: average body habitus Orientation/consciousness: patient oriented x3 Neck Other: Mild head tremor. Bilateral trapezius, semispinalis tightness. Neuro Other: Mild decreased facial expression and blink. Minimal hands tremor L>R- intermittent Mild decreased FFM and foot taps bilaterally. Gait-stooped, good stride, mild decreased arm swings. General: patient oriented x3 and CN's II-XI intact bilaterally Psych Appearance: grossly normal Mental Status: mental status grossly normal Speech and movement: Normal speech and movement present Assessment & Plan Assessment & Plan (1) Parkinson's disease without dyskinesia: Code(s): G20.A1 - Parkinson's disease without dyskinesia, without mention of fluctuations Category: Medical Qualifiers: Fluctuating manifestations: without fluctuating manifestations Qualified Code(s): G20.A1 - Parkinson's disease without dyskinesia, without mention of fluctuations (2) Cervical dystonia: Code(s): G24.3 - Spasmodic torticollis Category: Medical Plan Increase Sinemet 25/100 mg qID, and baclofen 5 mg, 1 tab qam and 2tabs at HS. continue exercises lorazepam 0.5mg as needed mirtazepine 7.5 mg qhs for anxiety and sleep Medications: Changed From carbidopa-levodopa 25-100 mg 1 tab PO TID 90 tabs 6RF To carbidopa-levodopa 25-100 mg 1 tab PO QID 90 tabs 6RF Coding Level of Care Code Est Pt Level 4 (92716) Complex EM visit Add On G2211 Diagnoses Parkinson's disease without dyskinesia or fluctuating manifestations G20.A1 Fluctuating manifestations: without fluctuating manifestations Cervical dystonia G24.3
--- OUTSIDE RECORDS SUMMARY | 2025-03-16 11:48 | XMS_ITS | Clinical Summary ---
Author Organization [address] Address [address] [place] [phone] Phone Care Team Providers Care Java Flex Developer Name Role Phone Unavailable Primary Care Provider Unavailabl e Allergies No known active allergies Medications dicyclomine (BENTYL) 10 mg capsuleIndicatio ns:Irritable bowel syndrome, unspecified type Take 1 capsule (10 mg total) by mouth 1 (one) time each day. 90 each 3 12/20/2024 12/21/19 26 Active famotidine (PEPCID) 40 mg tabletIndication s:Gastroesophage al reflux disease without esophagitis TAKE 1 TABLET BY MOUTH TWICE A DAY 180 tablet 3 01/31/2025 Active Encounters Date Type Department Care Team Description 12/20/2024 8:30 AM EDT Office Visit Gastroenterology - [address] [place] [phone] Nara Hernández, ZACHERY Irritable bowel syndrome, [...] Vaccines (1 of 2) 06/02/2013 04/07/2013, 10/2009 Depression Screening 08/05/2022 Falls Risk Assessment 08/05/2022 Hepatitis C Screening 08/05/2022 Medicare Annual Wellness Visit 08/05/2022 Osteoporosis Screening (Bone Density Screening) 08/05/2022 Social Influencers of Health Screening 08/05/2022 COVID-19 Vaccine (8 - Moderna risk season) 2024 05/12/2024, 06/12/2023, 07/23/2022, Additional history exists RSV Immunization Adult Patients (1 - 1-dose 75+ series) 2025 Influenza Vaccine (#1) 2025 , 07/20/2023, 07/11/2022, Additional history exists DTaP,Tdap,and Td Vaccines (2 - Td or Tdap) 07/22/2026 07/22/2016 Colorectal Cancer Screening: Colonoscopy 01/19/2035 01/19/2025 Pneumococcal Vaccine: 50+ Years Completed 07/27/2018, 07/24/2017 HIB Vaccines Aged Out No longer eligi [...] on patient's age to complete this topic Procedures Procedure Name Priority Date/Time Associated Diagnosis Comments COLONOSCOPY Routine 01/19/2025 1:24 PM EDT from Last 3 Months Results * COLONOSCOPY (01/19/2025 1:24 PM EDT) Anatomical Region Laterality Modality Endoscopy us Historical Provider MD BRANCH~PROCEDURE ORDERABLES F inal Result from Last 3 Months Insurance MEDICARE [facility]
== END 2025-03-16 11:49 | disposition home or self-care (01) ==
LOC: HO.HSMS 11:06
PROVIDERS: PCP Internal Medicine; Visit Provider Psychiatry & Neurology Neurology
DX: G20.A1 Parkinson's disease without dyskinesia, without mention of fluctuations (principal); G24.3 Spasmodic torticollis
CPT/HCPCS: 99214; G2211

== ENCOUNTER → 2025-03-16 11:06 | Outpatient (BNVA) | payer MEDICARE, OTHER, SELFPAY | PROVIDERS: PCP Internal Medicine; Visit Provider Psychiatry & Neurology Neurology | DX: G20.A1 Parkinson's disease without dyskinesia, without mention of fluctuations (principal); G24.3 Spasmodic torticollis | CPT/HCPCS: 99212 ==